=== PATIENT | female | born 2005 | race Two or more races ===

== ENCOUNTER 2024-09-27 06:20 | Inpatient (IN) | payer OTHER ==
[2024-09-27] MEDS: ELECTROLYTE-148 SOLN 500 ML IV ONE (06:40)
[2024-09-27] MEDS: ELECTROLYTE-148 SOLN 1,000 ML IV SCH (07:00)
[2024-09-27 07:15] VITALS: BMI 30.4
[2024-09-27] MEDS ORDERED: KETOROLAC TROMETHAMINE 30 MG/1 ML VIAL ONE (07:49)
[2024-09-27] MEDS ORDERED: FENTANYL CITRATE/PF 50 MCG/ML VIAL ONE (07:49)
[2024-09-27] MEDS ORDERED: morphine SULFATE/PF 1 MG/2 ML (2cc Syringe - QUVA) ONE (07:49)
[2024-09-27] MEDS ORDERED: ceFAZolin SODIUM 1 GM VIAL ONE (07:49)
[2024-09-27] MEDS ORDERED: ONDANSETRON 4 MG/2 ML VIAL ONE (07:49)
[2024-09-27] MEDS ORDERED: OXYTOCIN 10 UNITS/ML VIAL ONE (07:49)
[2024-09-27] MEDS ORDERED: PHENYLEPHRINE HCL 10 MG/1 ML SINGLE DOSE VIAL ONE (07:49)
[2024-09-27] MEDS ORDERED: SODIUM CHLORIDE 0.9% P/F 10 ML VIAL IJ ONE (07:50)
[2024-09-27] MEDS: CITRIC ACID/SODIUM CITRATE 30 ML UNIT-DOSE CUP PO ONE (08:00)
[2024-09-27] MEDS: ELECTROLYTE-148 SOLN 500 ML IV SCH (08:00)
[2024-09-27] MEDS ORDERED: IBUPROFEN 800 MG/8 ML IJ IVPB PRN (08:04)
[2024-09-27] MEDS ORDERED: ONDANSETRON 4 MG/2 ML VIAL IVPUSH PRN (09:10)
[2024-09-27] MEDS: METHYLERGONOVINE MALEATE 0.2 MG/1 ML AMP IM PRN ×2 (10:30→15:12)
[2024-09-27] MEDS: TRANEXAMIC ACID 1000 MG/10 ML VIAL IVPUSH ONE (10:55)
[2024-09-27] MEDS: OXYTOCIN 20 UNITS in 0.9% NS 20 UNIT/1,000 ML INFUS.BAG IV SCH (11:00)
[2024-09-27] MEDS ORDERED: ACETAMINOPHEN INJECTION 100 ML ONE (11:15)
[2024-09-27] MEDS: ACETAMINOPHEN 1000 MG/100 ML BAG IVPB PRN (11:20)
[2024-09-27] MEDS ORDERED: OXYTOCIN 20 UNITS in 0.9% NS 20 UNIT/1,000 ML INFUS.BAG IV ONE (11:49)
[2024-09-27] MEDS: PRENATAL VITAMINS W/ FOLIC ACID TABLET (FP) PO SCH (18:07)
[2024-09-28 01:47] VITALS: RESP 18
[2024-09-28] MEDS ORDERED: BISACODYL 10 MG SUPP.RECT RC PRN (08:04)
[2024-09-28 08:06] LABS: ABSOLUTE IMMATURE GRANULOCYTES 0.06 x10^3/uL (0.0-0.031); BASOPHILS # 0.03 x10^3/uL (0.01-0.08); EOSINOPHIL % 0.9 % (0.7-5.8); HEMATOCRIT 29.7 % (34.1-44.9); HEMOGLOBIN 9.6 g/dL (11.2-15.7); MCHC 32.3 g/dl (32.2-35.5); MEAN CELL VOLUME 96.1 fl (79.4-94.8); MONOCYTE # 0.62 x10^3/uL (0.24-0.86); MONOCYTE % 5.8 % (4.7-12.5); PLATELET COUNT 151 x10^3/uL (182-369); RDW 13.4 % (12.0-16.2)
[2024-09-28] MEDS: IBUPROFEN 600 MG TABLET (FP) PO PRN (08:44)
[2024-09-28] MEDS: FERROUS SO4 325 MG TABLET (FP) PO SCH (09:26)
[2024-09-28] MEDS ORDERED: ALBUTEROL SO4 HFA INHALER IH PRN (10:09)
[2024-09-28] MEDS: ACETAMINOPHEN 325 MG TABLET (FP) PO PRN (16:15)
[2024-09-28] MEDS: SIMETHICONE 80 MG TAB.CHEW (FP) PO PRN (16:15)
[2024-09-28] MEDS: SENNOSIDES/DOCUSATE COMBO (SENNA PLUS) TABLET (UD) PO PRN (19:45)
[2024-09-28] MEDS: oxyCODONE HCL 5 MG TABLET PO PRN (19:45)
[2024-09-30] MEDS: oxyCODONE HCL 5 MG TABLET PO PRN (06:40)
[2024-09-30 09:53] VITALS: BP 113/70; PULSE 87; TEMP 98.3
== END 2024-09-30 14:15 | disposition home or self-care (01) | DRG 540 ==
LOC: JLDR 06:20 → J3W 12:00
PROVIDERS: ADMIT Obstetrics & Gynecology; ATTEND Obstetrics & Gynecology
PROC: 10D00Z1 Extraction of Products of Conception, Low, Open Approach (ICD-10-PCS; principal; 2024-09-27)
DX: O44.43 Low lying placenta NOS or without hemorrhage, third trimester (principal); O32.2XX0 Maternal care for transverse and oblique lie, not applicable or unspecified; Z3A.39 39 weeks gestation of pregnancy; Z37.0 Single live birth
CPT/HCPCS: 36415; 80053; 85025; 85461; 85610; 85730; 86704; 86705; 86780; 86803; 86850; 86870; 86880; 86900; 86901; 86902; 87340; 87389; 87517; 88307-TC; 96372; J0131; J2790